=== PATIENT | female | born 1990 | race Caucasian/White ===

== ENCOUNTER 2021-01-10 22:28 | Day surgery (SDCO) | payer OTHER ==
[~2021-01-10 22:28] MED LIST: PERCOCET 5-3251 EACH PO; ZOFRAN4 M1 PO
[2021-01-10 23:36] LABS: BASOPHIL 0.3 % (0-2); EOSINOPHIL 0.7 % (0-5); HCT 39.7 % (37.0-47.0); HGB 12.9 g/dl (12.5-16.0); LYMPHOCYTE 28.3 % (15-48); MCH 28.2 pg (25.0-31.0); MCHC 32.5 g/dL (32.0-36.0); MCV 86.7 fL (78.0-100.0); MONOCYTE 6.1 % (0-12); NEUTROPHIL 64.2 % (41-80); NRBC 0; PLT 236 K/uL (150-400); RBC 4.58 M/uL (4.20-5.40); RDW 12.4 % (11.5-14.0); WBC 11.3 K/uL (4.0-10.5)
[2021-01-10 23:53] LABS: ALBUMIN 3.6 g/dL (3.4-5.0); BILIRUBIN - TOTAL 0.4 mg/dL (0.2-1.0); BUN/CREAT RATIO (CALC) 19.1 RATIO; CREATININE 0.68 mg/dL (0.51-0.95); POTASSIUM 3.7 mmol/L (3.5-5.1); TOTAL PROTEIN 7.6 g/dL (6.4-8.2)
[2021-01-10 23:59] LABS: BILIRUBIN NEGATIVE (NEGATIVE); BLOOD NEGATIVE Ery/uL (NEGATIVE); CLARITY CLEAR (CLEAR); COLOR YELLOW (YELLOW); GLUCOSE (U) NORMAL (NORMAL); LEUKOCYTES TRACE Leu/uL (NEGATIVE); NITRITE NEGATIVE (NEGATIVE); PROTEIN NEGATIVE (NEGATIVE); SPECIFIC GRAVITY 1.025 (1.001-1.030); UROBILINOGEN 0.2 mg/dL (0.2-1.0)
[2021-01-11 00:02] LABS: BACTERIA 1+; URINARY RBC RARE
[2021-01-11] MEDS ORDERED: ZESTRIL5 MG PO (04:03)
[2021-01-11] MEDS ORDERED: ESCITALOPRAM OXA5 MG PO (04:04)
[2021-01-11 09:19] LABS: HCG (URINE) SCREEN NEGATIVE (NEGATIVE)
[2021-01-11] MEDS ORDERED: OXY-IR 5MG5 MG PO (11:07)
[2021-01-11] MEDS ORDERED: COLACE100 MG PO (11:07)
[2021-01-11] MEDS ORDERED: ACETAMINOPHEN500 M1 PO (11:07)
[2021-01-11] MEDS ORDERED: MOTRIN600 MG PO (11:07)
== END 2021-01-11 16:10 | disposition home or self-care (01) ==
LOC: FER 22:28 → FMS 01-11 02:35
PROVIDERS: Emergency Medicine; Nurse Anesthetist, Certified Registered; ADMIT Internal Medicine
DX: K80.12 Calculus of gallbladder with acute and chronic cholecystitis without obstruction (principal); K21.9 Gastro-esophageal reflux disease without esophagitis; I10 Essential (primary) hypertension; Z88.0 Allergy status to penicillin; Z88.1 Allergy status to other antibiotic agents; Z98.890 Other specified postprocedural states; Z87.442 Personal history of urinary calculi; Z87.19 Personal history of other diseases of the digestive system; Z96.0 Presence of urogenital implants; Z98.51 Tubal ligation status; Z79.899 Other long term (current) drug therapy; Z20.822 Contact with and (suspected) exposure to COVID-19
CPT/HCPCS: 36415; 80053; 81001; 83605; 83690; 84703; 85025; 94010; 96368; C9113; G0378; J0735; J1100; J1170; J1644; J1885; J1956; J2250; J2405; J2550; J2704; J2710; J3010; J7030; U0002

== ENCOUNTER 2021-01-13 09:31 | Emergency (ER) | payer OTHER ==
[~2021-01-13 09:31] MED LIST changes: +ACETAMINOPHEN500 M1 PO; +COLACE100 MG PO; +ESCITALOPRAM OXA5 MG PO; +MOTRIN600 MG PO; +OXY-IR 5MG5 MG PO; +ZESTRIL5 MG PO
[2021-01-13 10:31] LABS: BASOPHIL 0.3 % (0-2); EOSINOPHIL 1.2 % (0-5); HCT 37.1 % (37.0-47.0); HGB 12.1 g/dl (12.5-16.0); LYMPHOCYTE 40.5 % (15-48); MCH 28.6 pg (25.0-31.0); MCHC 32.6 g/dL (32.0-36.0); MCV 87.7 fL (78.0-100.0); MONOCYTE 7.6 % (0-12); MPV 9.4 fL (6.0-9.5); NRBC 0; PLT 187 K/uL (150-400); RBC 4.23 M/uL (4.20-5.40); RDW 12.4 % (11.5-14.0)
[2021-01-13 11:14] LABS: ALBUMIN 3.3 g/dL (3.4-5.0); BILIRUBIN - TOTAL 0.4 mg/dL (0.2-1.0); BUN/CREAT RATIO (CALC) 19.4 RATIO; CREATININE 0.67 mg/dL (0.51-0.95); GLOBULIN (CALCULATION) 3.5 g/dL; TOTAL PROTEIN 6.8 g/dL (6.4-8.2)
== END 2021-01-13 12:10 | disposition home or self-care (01) ==
LOC: FER 09:31
PROVIDERS: Emergency Medicine
DX: G89.18 Other acute postprocedural pain (principal); R10.9 Unspecified abdominal pain; K59.00 Constipation, unspecified; Z90.49 Acquired absence of other specified parts of digestive tract; Z98.890 Other specified postprocedural states; Z88.0 Allergy status to penicillin
CPT/HCPCS: 36415; 74022; 80053; 83690; 85025; J1885